=== PATIENT | female | born 1990 | race Caucasian/White ===

== ENCOUNTER 2024-11-09 13:56 | Emergency (ER) | payer OTHER ==
[~2024-11-09] VITALS: Ht 172.7 cm; Wt 104.3 kg
== END 2024-11-09 14:35 | disposition home or self-care (01) ==
LOC: ER 13:56
DX: O36.8120 Decreased fetal movements, second trimester, not applicable or unspecified (principal); Z3A.15 15 weeks gestation of pregnancy; Z88.8 Allergy status to other drugs, medicaments and biological substances; Z59.89 Other problems related to housing and economic circumstances
CPT/HCPCS: 99284-25